=== PATIENT | female | born 1975 | race Two or more races ===

== ENCOUNTER 2021-08-24 06:36 | Day surgery (SDC) | payer OTHER ==
[~2021-08-24 06:36] MED LIST: HYZAAR 100-12.1 EACH PO
== END 2021-08-24 16:30 | disposition home or self-care (01) ==
LOC: CIR.AMB 06:36
PROVIDERS: ATTEND Surgery
DX: N60.91 Unspecified benign mammary dysplasia of right breast (principal); N60.81 Other benign mammary dysplasias of right breast; D24.1 Benign neoplasm of right breast; Z88.0 Allergy status to penicillin; Z91.013 Allergy to seafood; I10 Essential (primary) hypertension; J45.909 Unspecified asthma, uncomplicated